=== PATIENT | female | born 1960 | race Caucasian/White ===

== ENCOUNTER 2023-02-22 22:30 | Emergency (ER) | payer OTHER, SELFPAY ==
[2023-02-22] VITALS (8 sets, daily range): BP systolic 70–151; BP diastolic 39–78; PULSE 55–93; RESP 18–26; TEMP 37.3; O2SAT 93–97; BMI 44.6
--- NOTE | 2023-02-22 22:41 | DI.RAD.S_ITS ---
PROCEDURE: XR CHEST 1V INDICATIONS: eval for PNA TECHNIQUE: One view of the chest was acquired. COMPARISON: None. FINDINGS: Surgical changes and devices: None. Lungs and pleura: Low lung volumes. No drainable pleural effusion. No dense consolidation. Possible mild peribronchial cuffing. Mediastinum: Normal heart size Bones and chest wall: No suspicious bony lesions. Overlying soft tissues appear unremarkable. IMPRESSION: Possible mild peribronchial cuffing may be seen with bronchitis. There is no dense airspace disease or pleural effusion on this limited single view radiograph with low lung volumes. Dictated by: Rodriguez Bolton M.D. on 02/22/2023 at 23:31 Approved by: Rodriguez Bolton M.D. on 02/22/2023 at 23:31
--- NOTE | 2023-02-22 23:39 | ED_ITS ---
HPI - General Adult General Chief complaint: Upper Respiratory Symptoms Stated complaint: respiratory issues Time Seen by Provider: 02/22/23 22:35 Source: patient Mode of arrival: Ambulatory History of Present Illness HPI narrative: Patient is a 62-year-old female who is here for evaluation of several days of cough and congestion and then just over 24 hours of worsening cough and congestion and now a loss of taste. She did not test herself for COVID. No underlying lung pathology. No chest pain. She is having diarrhea as well. No recent travel. has similar symptoms. Related Data Previous Rx's Medication Instructions Recorded benzonatate 100 mg capsule 100 mg PO BID-TID PRN cough #20 02/23/23 caps Allergies Allergy/AdvReac Type Severity Reaction Status Date / Time latex Allergy Rash Verified 02/22/23 22:44 Penicillins Allergy Rash Verified 02/22/23 22:44 Review of Systems Constitutional Constitutional: Reports system reviewed and no additional complaints, except as documented Cardiovascular Cardiovascular: Reports system reviewed and no additional complaints, except as documented Respiratory Respiratory: Reports system reviewed and no additional complaints, except as documented Gastrointestinal Gastrointestinal: Reports system reviewed and no additional complaints, except as documented Integumentary/Breasts Skin/Breast: Reports system reviewed and no additional complaints, except as documented Patient History Social History Smoking Status: Never smoker Smoking Status: Never smoker alcohol intake frequency: a few times a week Substance Use Type: marijuana Exam Initial Vital Signs Initial Vital Signs: Vital Signs Pulse Rate 93 H 02/22/23 22:39 Pulse Oximetry 96 02/22/23 22:39 Oxygen Delivery Method Room Air 02/22/23 22:39 HENAR Head: normal to inspection and normocephalic Resp Effort & Inspection: normal respiratory effort Auscultation: clear to auscultation bilaterally Cardio Rate: regular rate Rhythm: regular rhythm GI Inspection: normal to inspection Neuro General: patient alert, patient awake and moves all extremities Course Orders Ordered: ED Orders 02/22/23 22:40 Covid-19 + FLU A/B + RSV - PCR Stat 02/22/23 22:41 XR chest 1V Stat 02/22/23 23:55 Basic Metabolic Panel Stat Complete Blood Count AUTO DIFF Stat Discontinued Medications Benzonatate (Benzonatate 100 Mg Capsule) 100 mg PO NOW ONE Stop: 02/23/23 02:13 Sodium Chloride (Normal Saline 0.9%) 1,000 mls @ 1,000 mls/hr IV BOLUS ONE Stop: 02/23/23 00:47 Last Infusion: 02/23/23 01:07 Dose: Infused Documented By: Admin: 02/23/23 00:01 Dose: 1,000 mls/hr Documented By: SANDEEP Ondansetron HCl (Ondansetron 4 Mg Odt) 4 mg SL NOW ONE Stop: 02/22/23 23:41 Last Admin: 02/22/23 23:44 Dose: 4 mg Documented By: SANDEEP Vital Signs Vital signs: Vital Signs - 8 hr 02/22/23 22:39 02/22/23 22:40 02/22/23 23:00 Temperature 99.2 F Pulse Rate 93 H 87 81 Respiratory Rate 26 H Blood Pressure 151/78 H Pulse Oximetry 96 97 96 Oxygen Delivery Method Room Air Room Air Room Air 02/22/23 23:30 02/22/23 23:42 02/22/23 23:42 Temperature Pulse Rate 73 55 L Respiratory Rate Blood Pressure 74/46 L Pulse Oximetry 95 93 Oxygen Delivery Method 02/22/23 23:45 02/22/23 23:45 02/22/23 23:48 Temperature Pulse Rate 56 L Respiratory Rate 18 Blood Pressure 70/39 L 77/45 L Pulse Oximetry 93 Oxygen Delivery Method 02/22/23 23:48 02/22/23 23:50 02/22/23 23:50 Temperature Pulse Rate 64 62 Respiratory Rate Blood Pressure 76/49 L Pulse Oximetry 93 93 Oxygen Delivery Method Room Air Room Air 02/23/23 00:00 02/23/23 00:00 02/23/23 00:10 Temperature Pulse Rate 65 Respiratory Rate Blood Pressure 81/49 L 89/52 L Pulse Oximetry Oxygen Delivery Method 02/23/23 00:10 02/23/23 00:20 02/23/23 00:20 Temperature Pulse Rate 66 65 Respiratory Rate Blood Pressure 93/50 L Pulse Oximetry 94 Oxygen Delivery Method Nasal Cannula 02/23/23 00:30 02/23/23 00:30 02/23/23 00:40 Temperature Pulse Rate 64 Respiratory Rate Blood Pressure 93/55 L 93/55 L Pulse Oximetry 93 Oxygen Delivery Method Nasal Cannula 02/23/23 00:40 02/23/23 00:50 02/23/23 00:50 Temperature Pulse Rate 64 62 Respiratory Rate Blood Pressure 96/54 L Pulse Oximetry 94 93 Oxygen Delivery Method 02/23/23 01:00 02/23/23 01:00 02/23/23 01:10 Temperature Pulse Rate 63 Respiratory Rate Blood Pressure 95/50 L 99/56 L Pulse Oximetry 91 Oxygen Delivery Method 02/23/23 01:10 02/23/23 01:20 02/23/23 01:20 Temperature Pulse Rate 64 62 Respiratory Rate 18 Blood Pressure 90/51 L Pulse Oximetry 92 96 Oxygen Delivery Method 02/23/23 01:30 02/23/23 01:30 Temperature Pulse Rate 63 Respiratory Rate Blood Pressure 90/53 L Pulse Oximetry 94 Oxygen Delivery Method Room Air Medical Decision Making Lab Data Lab results reviewed: Yes I reviewed the patient's lab results. 02/22/23 23:55 02/22/23 23:55 Labs: Lab Results 02/22/23 02/22/23 Range/Units 22:40 23:55 WBC 8.4 (4.5-11.0) X10^3/uL RBC 4.37 (4.0-5.2) X10^6/uL Hgb 13.3 (12.0-16.0) g/dL Hct 39.7 (36-46) % MCV 91.0 (80-100) fL MCH 30.5 (26-34) PG MCHC 33.5 (30-36) % RDW 13.3 (11.6-14.8) % Plt Count 201 (150-400) X10^3/uL Neut % (Auto) 52.9 (50-75) % Lymph % (Auto) 33.7 (25-40) % [place] % (Auto) 12.6 (3-14) % Eos % (Auto) 0.5 L (2-4) % Baso % (Auto) 0.3 (0-2) % Neut # (Auto) 4400 (8269-6424) /uL Lymph # (Auto) 2800 (8949-2152) /uL [place] # (Auto) 1100 H (0-900) /uL Eos # (Auto) 0 (0-450) /uL Baso # (Auto) 0 (0-100) /uL Sodium 136 L (137-145) mmol/L Potassium 4.0 (3.4-5.1) mmol/L Chloride 106 (98-107) mmol/L Carbon Dioxide 20 L (22-32) mmol/L BUN 7 (7-17) mg/dL Creatinine 0.77 (0.52-1.04) mg/dL Estimated GFR > 60 (>60) mL/min BUN/Creatinine Ratio 9.1 (6-22) Glucose 126 H (80-110) mg/dL Calcium 9.2 (8.4-10.2) mg/dL SARS-CoV-2 (PCR) Positive H (Negative) Influenza A (RT-PCR) Flu a negative (NEGATIVE) Influenza B (RT-PCR) Flu b negative (NEGATIVE) RSV (PCR) Negative (Negative) Imaging Data Chest x-ray: Radiologist's Impression: PROCEDURE: XR CHEST 1V INDICATIONS: eval for PNA TECHNIQUE: One view of the chest was acquired. COMPARISON: None. FINDINGS: Surgical changes and devices: None. Lungs and pleura: Low lung volumes. No drainable pleural effusion. No dense consolidation. Possible mild peribronchial cuffing. Mediastinum: Normal heart size Bones and chest wall: No suspicious bony lesions. Overlying soft tissues appear unremarkable. IMPRESSION: Possible mild peribronchial cuffing may be seen with bronchitis. There is no dense airspace disease or pleural effusion on this limited single view radiograph with low lung volumes MDM Narrative Medical decision making narrative: Patient is COVID positive. She was informed of this resolved. She was not hypoxic. Lungs are clear. Chest x-ray is unremarkable. No indication for admission to hospital. No indication for antibiotics. Will discharge patient home with return precautions. She expressed understanding and agreement with plan. Discharge Plan Departure Patient Disposition: Home Clinical Impression: COVID-19 Instructions: COVID-19 Activity Restrictions/Additional Instructions: You can take Tylenol/ibuprofen for any fevers or body aches. Be sure that you were increasing your fluid intake. Continue the rest of your medications as directed. Return to the emergency department for worsening problems breathing. Prescriptions: New benzonatate 100 mg capsule 100 mg PO BID-TID PRN (Reason: cough) Qty: 20 0RF Stand Alone Forms: Patient Portal/API
[2023-02-22] MEDS: ONDANSETRON 4 MG ODT SL (23:44)
[2023-02-23] VITALS (15 sets, daily range): BP systolic 81–100; BP diastolic 49–59; PULSE 61–67; RESP 18–20; TEMP 36.7; O2SAT 91–98
[2023-02-23] MEDS: SODIUM CHLORIDE 0.9% 1,000 ML 1000 ML IV (00:01)
--- NOTE | 2023-02-23 00:02 | PC.NURSE ---
23:42 patient's significant other came out of the room saying the patient is going to throw up.This nurse came into the room and provided emesis bag. Dr. Cox was notified. MAIKEL mejia was ordered see APR. Patient also became diaphoretic and hypotensive with lowest BP of 70/39. Dr. Cox aware. See orders. IV started, began fluids.
[2023-02-23 00:03] LABS: Add Manual Diff / Slide Review NO; Basophils Absolute Auto 0 /uL (0-100); Basophils Percent Auto 0.3 % (0-2); Eosinophils Absolute Auto 0 /uL (0-450); Eosinophils Percent Auto 0.5 % (2-4); Hematocrit 39.7 % (36-46); Hemoglobin 13.3 g/dL (12.0-16.0); Lymphocytes Absolute Auto 2800 /uL (1100-4500); Lymphocytes Percent Auto 33.7 % (25-40); Mean Corpuscular HGB Conc 33.5 % (30-36); Mean Corpuscular Hemoglobin 30.5 PG (26-34); Monocytes Absolute Auto 1100 /uL (0-900); Monocytes Percent Auto 12.6 % (3-14); Neutrophils Absolute Auto 4400 /uL (1500-7000); Neutrophils Percent Auto 52.9 % (50-75); Platelet Count 201 X10^3/uL (150-400); Red Blood Cell Count 4.37 X10^6/uL (4.0-5.2); Red Cell Distribution Width 13.3 % (11.6-14.8); White Blood Cell Count 8.4 X10^3/uL (4.5-11.0)
[2023-02-23 00:26] LABS: HEMOLYSIS < 15 (0-50)
[2023-02-23 00:27] LABS: BUN Creatinine Ratio 9.1 (6-22); Blood Urea Nitrogen 7 mg/dL (7-17); Calcium 9.2 mg/dL (8.4-10.2); Carbon Dioxide 20 mmol/L (22-32); Chloride 106 mmol/L (98-107); Estimated Glomerular Filt Rate > 60 mL/min (>60); Glucose 126 mg/dL (80-110); Sodium 136 mmol/L (137-145)
[2023-02-23 02:02] LABS: Influenza A - CEPHEID Flu A NEGATIVE (NEGATIVE); Influenza B - CEPHEID Flu B NEGATIVE (NEGATIVE); Respiratory Syncytial Virus Negative (Negative)
[2023-02-23 02:04] LABS: COVID-19 CEPHEID 4-PLEX PCR POSITIVE (Negative)
[2023-02-23] MEDS: BENZONATATE 100 MG CAPSULE PO (02:30)
== END 2023-02-23 02:40 | disposition home or self-care (01) ==
PROVIDERS: Emergency Provider Emergency Medicine
DX: U07.1 COVID-19 (principal); R19.7 Diarrhea, unspecified
CPT/HCPCS: 0241U; 36415; 71045; 80048; 85025; 96360; 99284

== ENCOUNTER 2023-04-28 18:02 | Observation (INO) | payer OTHER, SELFPAY ==
[2023-04-28] VITALS (12 sets, daily range): BP systolic 122–184; BP diastolic 68–106; PULSE 69–97; RESP 18–27; TEMP 36.7; O2SAT 94–98; BMI 40.6
--- NOTE | 2023-04-28 18:25 | DI.RAD.S_ITS ---
PROCEDURE: XR CHEST 1V INDICATIONS: altered mental status TECHNIQUE: One view of the chest was acquired. COMPARISON: [facility], CR, XR CHEST 1V, 02/22/2023, 22:41. FINDINGS: Surgical changes and devices: None. Lungs and pleura: Lungs are clear. No pleural effusions or pneumothorax. Mediastinum: Mediastinal contours appear normal. Heart size is normal. Bones and chest wall: No suspicious bony lesions. Overlying soft tissues appear unremarkable. IMPRESSION: No acute cardiopulmonary abnormality is seen. Dictated by: Cliff Ross M.D. on 04/28/2023 at 18:57 Approved by: Cliff Ross M.D. on 04/28/2023 at 18:57
--- NOTE | 2023-04-28 18:30 | ED_ITS ---
HPI - Altered Mental Status General Chief Complaint: Altered Mental Status Stated Complaint: confusion, trouble communicating, not eating. Time Seen by Provider: 04/28/23 18:29 History of Present Illness HPI narrative: 62-year-old female with history of hypertension, hyperlipidemia, bipolar disorder on lithium and lamotrigine presents by private vehicle from home for 2 episodes of abnormal speaking. Patient states she went to bed in her usual state of health, when she woke up she stated that she began to speak ?nonsense?. She states that she recognized that she was not making any sense whatsoever but was unable to formulate words in an intelligible manner. This resolved after approximately 45 minutes. There was a brief episode again later this afternoon where patient was not speaking intelligibly and so they became concerned and decided to bring the patient in for evaluation. Patient states that this is happened once several years ago. This was attributed to an elevated ammonia level from ?an infection?. She states she improved with antibiotics but the reason for her elevated ammonia level was never found. Patient states she drinks alcohol once or twice weekly and has not had an alcoholic beverage in over 10 days. Related Data Home Medications Medication Instructions Recorded Confirmed diltiazem HCl 300 mg 300 mg PO DAILY 04/28/23 04/28/23 capsule,extended release 24 hr hydroxyzine HCl 50 mg tablet 50 mg PO 3XD PRN Anxiety 04/28/23 04/28/23 isosorbide mononitrate 30 mg 30 mg PO BID 04/28/23 04/28/23 tablet,extended release 24 hr lamotrigine 200 mg tablet 200 mg PO BID 04/28/23 04/28/23 lithium carbonate 300 mg 600 mg PO BID 04/28/23 04/28/23 tablet,extended release valsartan 320 mg tablet 320 mg PO DAILY 04/28/23 04/28/23 Allergies Allergy/AdvReac Type Severity Reaction Status Date / Time latex Allergy Rash Verified 04/28/23 18:25 Penicillins Allergy Rash Verified 04/28/23 18:25 Review of Systems Review of Systems Narrative: Negative except as noted above Patient History Social History Smoking Status: Never smoker Smoking Status: Never smoker alcohol intake frequency: a few times a week Substance Use Type: marijuana Exam Initial Vital Signs Initial Vital Signs: Vital Signs Temperature 98.1 F 04/28/23 18:38 Pulse Rate 97 H 04/28/23 18:38 Respiratory Rate 18 04/28/23 18:38 Blood Pressure 184/101 H 04/28/23 18:38 Pulse Oximetry 97 04/28/23 18:38 Oxygen Delivery Method Room Air 04/28/23 18:38 Const: Awake, alert, no acute distress, nontoxic appearing Cardiac: regular rate, regular rhythm RESP: unlabored, clear bilaterally, no wheezing GI: Soft, nontender, nondistended, no rebound, no guarding MSK: Atraumatic, full range of motion, pulses equal Skin: Warm, Dry, intact, no rashes Neuro: AO x3, CN II-XII grossly intact, moves all extremities, speech normal, sensation normal Course Orders Ordered: ED Orders 04/28/23 18:25 XR chest 1V Stat 04/28/23 18:34 CT head/brain wo con Stat 04/28/23 19:06 EKG-12 Lead Stat 04/28/23 19:29 Ammonia (NH3) Stat Complete Blood Count AUTO DIFF Stat Comprehensive Metabolic Panel Stat [place] Stat Troponin & CK Cardiac Panel Stat 04/28/23 22:22 Urine Drug Screen, Rapid Stat 04/28/23 22:31 CT angio head and neck Stat 04/28/23 23:15 [place] Stat Discontinued Medications Aspirin (Aspirin Ec 325 Mg Tablet) 325 mg PO NOW ONE Stop: 04/29/23 00:30 Last Admin: 04/29/23 00:41 Dose: 325 mg Documented By: NICKOLAS Sodium Chloride (Normal Saline 0.9%) 1,000 mls @ 1,000 mls/hr IV BOLUS ONE Stop: 04/28/23 21:49 Last Infusion: 04/28/23 22:00 Dose: Infused Documented By: Admin: 04/28/23 20:59 Dose: 1,000 mls/hr Documented By: NICKOLAS Vital Signs Vital signs: Vital Signs - 8 hr 04/28/23 18:38 04/28/23 19:29 04/28/23 19:29 Temperature 98.1 F Pulse Rate 97 H 78 Respiratory Rate 18 Blood Pressure 184/101 H 132/79 Pulse Oximetry 97 96 Oxygen Delivery Method Room Air Room Air 04/28/23 19:30 04/28/23 19:30 04/28/23 20:00 Temperature Pulse Rate 79 Respiratory Rate Blood Pressure 143/82 H 138/93 H Pulse Oximetry 95 Oxygen Delivery Method Room Air 04/28/23 20:00 04/28/23 20:30 04/28/23 20:30 Temperature Pulse Rate 82 75 Respiratory Rate Blood Pressure 139/77 Pulse Oximetry 95 94 Oxygen Delivery Method 04/28/23 21:00 04/28/23 21:00 04/28/23 21:30 Temperature Pulse Rate 78 Respiratory Rate 20 Blood Pressure 151/106 H 143/72 H Pulse Oximetry 95 Oxygen Delivery Method 04/28/23 21:30 04/28/23 22:00 04/28/23 22:00 Temperature Pulse Rate 78 71 Respiratory Rate 20 20 Blood Pressure 150/87 H Pulse Oximetry 98 98 Oxygen Delivery Method Room Air Room Air 04/28/23 22:36 04/28/23 22:52 04/28/23 22:52 Temperature Pulse Rate 78 71 Respiratory Rate 24 26 H Blood Pressure 147/71 H Pulse Oximetry 98 98 Oxygen Delivery Method Room Air Room Air 04/28/23 23:00 04/28/23 23:00 04/28/23 23:30 Temperature Pulse Rate 72 69 Respiratory Rate 27 H 25 H Blood Pressure 122/68 Pulse Oximetry 97 97 Oxygen Delivery Method Room Air Room Air 04/28/23 23:30 04/29/23 00:00 04/29/23 00:30 Temperature Pulse Rate 65 61 Respiratory Rate 25 H 29 H Blood Pressure 129/78 Pulse Oximetry 97 95 Oxygen Delivery Method Room Air Room Air 04/29/23 00:39 04/29/23 00:39 Temperature Pulse Rate 88 Respiratory Rate 26 H Blood Pressure 172/67 H Pulse Oximetry 98 Oxygen Delivery Method Room Air MDM - Altered Mental Status Differential Diagnosis Differential diagnosis: Likely altered mental status, delirium and hyponatremia Lab Data 04/28/23 19:29 04/28/23 19:29 Labs: Lab Results 04/28/23 04/28/23 04/28/23 Range/Units 19:29 22:22 23:15 WBC 6.8 (4.5-11.0) X10^3/uL RBC 4.67 (4.0-5.2) X10^6/uL Hgb 14.6 (12.0-16.0) g/dL Hct 43.2 (36-46) % MCV 92.5 (80-100) fL MCH 31.3 (26-34) PG MCHC 33.8 (30-36) % RDW 13.7 (11.6-14.8) % Plt Count 205 (150-400) X10^3/uL Neut % (Auto) 52.4 (50-75) % Lymph % (Auto) 35.4 (25-40) % [place] % (Auto) 9.5 (3-14) % Eos % (Auto) 1.9 L (2-4) % Baso % (Auto) 0.8 (0-2) % Neut # (Auto) 3600 (1053-1530) /uL Lymph # (Auto) 2400 (6160-6540) /uL [place] # (Auto) 700 (0-900) /uL Eos # (Auto) 100 (0-450) /uL Baso # (Auto) 100 (0-100) /uL Sodium 140 (137-145) mmol/L Potassium 3.7 (3.4-5.1) mmol/L Chloride 111 H (98-107) mmol/L Carbon Dioxide 21 L (22-32) mmol/L BUN 6 L (7-17) mg/dL Creatinine 0.89 (0.52-1.04) mg/dL Estimated GFR > 60 (>60) mL/min BUN/Creatinine Ratio 6.7 (6-22) Glucose 105 (80-110) mg/dL Calcium 10.1 (8.4-10.2) mg/dL Total Bilirubin 1.0 (0.2-1.3) mg/dL AST 137 H (14-36) IU/L ALT 173 H (<35) IU/L Alkaline Phosphatase 110 (38-126) U/L Ammonia 25 (9-30) umol/L Total Creatine Kinase 43 (30-135) U/L Troponin I < 0.012 (0.01-0.034) ng/mL Total Protein 7.7 (6.3-8.2) g/dL Albumin 4.4 (3.5-5.0) g/dL Globulin 3.3 (1.7-4.1) g/dL Albumin/Globulin Ratio 1.3 (1.0-2.8) U Opiates 300ng/mL cut Negative (Negative) Ur Oxycodone Screen Negative (Negative) Urine Methadone Screen Negative (Negative) Ur Barbiturates Screen Negative (Negative) U Tricyclic Antidepress Negative (Negative) Ur Phencyclidine Scrn Negative (Negative) Ur Amphetamines Screen Negative (Negative) U Methamphetamines Scrn Negative (Negative) Ur MDMA Scrn (Ecstasy) Negative (Negative) U Benzodiazepines Scrn Negative (Negative) [place] 1.4 H 1.2 (0.6-1.2) mmol/L Urine Cocaine Screen Negative (Negative) U Marijuana (THC) Screen Positive H (Negative) Urine pH Normal (Normal) Urine Specific [place] Normal (Normal) Ur Creatinine Normal (Normal) Urine Dip Bedside Urine Glucose Negative Bedside Urine Bilirubin - Negative Bedside Urine Ketone - Negative Urine Specific [place] 1.005 Bedside Urine Occult Blood - Negative Bedside Urine pH 7.0 Bedside Urine Protein - Negative Bedside Urine Urobilinogen - Negative Bedside Urine Nitrite - Negative Imaging Data CT scan - head: Radiologist's Impression: PROCEDURE: CT HEAD/BRAIN WO CON INDICATIONS: CONFUSION/SPEAKING DIFFICULTIES X 24HRS TECHNIQUE: Noncontrast 4.5 mm thick angled axial sections acquired from the foramen magnum to the vertex, with coronal and sagittal reformats. For radiation dose reduction, the following was used: automated exposure control, adjustment of mA and/or kV according to patient size. COMPARISON: None. FINDINGS: Image quality: Diagnostic. CSF spaces: Basal cisterns are patent. No extra-axial fluid collections. The ventricles are symmetric in size and shape. Brain: No intracranial bleeds or masses. There is cerebral volume loss for age, with resultant ventricular and sulcal prominence. There are periventricular and deep white matter chronic small vessel ischemic changes. There is intracranial internal carotid artery atherosclerosis. Skull and face: Calvarium and visualized facial bones appear intact, without suspicious lesions. Sinuses: Visualized sinuses and mastoids are clear. IMPRESSION: 1. CT head without acute intracranial abnormalities or acute calvarial fractures. 2. Age-related senescent changes and sequela of chronic small vessel ischemic disease. Dictated by: He Elizondo M.D. on 04/28/2023 at 17:53 Approved by: He Elizondo M.D. on 04/28/2023 at 17:53 PROCEDURE: CT ANGIO HEAD AND NECK INDICATIONS: DIFFICULTY SPEAKING THIS MORNING, NOW RESOLVED TECHNIQUE: After the administration of intravenous contrast, 1 mm thick sections acquired from the aortic arch through the [place] of [place]. 3-dimensional mrkwqhc-csdikympi-jatgbrevnh (MIP) and/or volume rendering reformats were acquired of the central intracranial vasculature and neck separately. For radiation dose reduction, the following was used: automated exposure control, adjustment of mA and/or kV according to patient size. COMPARISON: [facility], CT, CT HEAD/BRAIN WO CON, 04/28/2023, 18:41. FINDINGS: Image quality: There is suboptimal opacification of the arteries within the lower neck. Arteries of the head are adequately opacified. Diagnostic information is obtained. BRAIN: CSF spaces: Ventricles are normal in size and shape. Basal cisterns are patent. No extra-axial fluid collections. Brain: No significant abnormality of the brain can be seen. Skull and face: Calvarium and facial bones appear intact, without suspicious lesions. Orbits appear normal. Sinuses: Sinuses and mastoids are clear. HEAD CT ANGIOGRAPHY: Anterior circulation: Intracranial internal carotid arteries demonstrate mild atherosclerotic calcifications without hemodynamically significant stenosis. The flow within the paired anterior cerebral arteries is normal and symmetric. The flow within the middle cerebral arteries is normal and symmetric. The anterior communicating artery is seen. No aneurysms are seen. Posterior circulation: Visualized portions of the vertebral arteries demonstrate normal caliber, and join to form a normal appearing basilar artery. type origin of the right [employer], a normal anatomical variant. Flow within the posterior cerebral arteries is normal and symmetric. No aneurysms are seen. NECK CT ANGIOGRAPHY: Carotid system: The great vessels demonstrate a conventional anatomy as they arise from the aortic arch. The origins of the common carotid arteries appear patent. The common carotid arteries demonstrate normal caliber and retropharyngeal courses. The bifurcation regions are both widely patent. The internal carotid arteries demonstrate normal calibers and tortuous courses. Posterior circulation: The origins of the vertebral arteries both appear widely patent. The more superior extracranial portions of both vertebral arteries also demonstrate normal courses and calibers. They join to form a normal appearing basilar artery. Soft tissues: Visualized neck soft tissues demonstrate no suspicious abnormalities. Thyroid appears mildly enlarged without a significant discrete nodule identified. Bones: No suspicious bony lesions. Visualized cervical spine appears normally aligned. IMPRESSION: Suboptimal timing of the contrast bolus. Within these limits, no significant intracranial arterial abnormality is seen. No significant abnormality is seen within the arteries of the neck. No acute intracranial abnormality is seen. Any quantitative measurements of stenosis were performed using NASCET criteria. Approved by: Kamran Noble M.D. on 04/28/2023 at 23:10 Chest x-ray: Radiologist's Impression: PROCEDURE: XR CHEST 1V INDICATIONS: altered mental status TECHNIQUE: One view of the chest was acquired. COMPARISON: [facility], CR, XR CHEST 1V, 02/22/2023, 22:41. FINDINGS: Surgical changes and devices: None. Lungs and pleura: Lungs are clear. No pleural effusions or pneumothorax. Mediastinum: Mediastinal contours appear normal. Heart size is normal. Bones and chest wall: No suspicious bony lesions. Overlying soft tissues appear unremarkable. IMPRESSION: No acute cardiopulmonary abnormality is seen. Dictated by: Cliff Ross M.D. on 04/28/2023 at 18:57 Approved by: Cliff Ross M.D. on 04/28/2023 at 18:57 [facility] Narrative Medical decision making narrative: Otherwise well-appearing patient with 2 episodes of expressive aphasia. Patient currently has NIH of 0, her speech is fluent and coherent. Patient states that last time this was attributed to an elevated ammonia level but no cause was found for her ammonia elevation. Denies regular alcohol use or history of liver disease. Laboratory work is reviewed, there was no leukocytosis, normal electrolytes. Chest x-ray negative for acute findings. Noncontrast head CT as well as CT angio of the head and neck are negative for acute findings that would explain patient's symptoms. Ammonia level is not elevated, and in addition there are no clinical or laboratory signs of acute infection. Patient's initial lithium level 1.4, she states that 2 weeks ago her lithium level was increased from 900 mg to 1200 mg by her psychiatrist, and she has overall felt poorly since the dose increase, but denies any other symptoms. After 1 L of IV fluids the lithium level was rechecked and it was now within normal limits. I do not suspect lithium toxicity as etiology of patient's speech difficulties. Due to patient's age, risk factors, stuttering nature of symptoms we will admit to hospital for MRI and TIA evaluation. Patient and her are in agreement with plan. Discharge Plan Departure Patient Disposition: Admitted as Observation Clinical Impression: Expressive aphasia Admit Date/Time: 04/29/23 01:01 Admit Provider: Haylie Martins
--- NOTE | 2023-04-28 18:34 | DI.CT.S_ITS ---
PROCEDURE: CT HEAD/BRAIN WO CON INDICATIONS: CONFUSION/SPEAKING DIFFICULTIES X 24HRS TECHNIQUE: Noncontrast 4.5 mm thick angled axial sections acquired from the foramen magnum to the vertex, with coronal and sagittal reformats. For radiation dose reduction, the following was used: automated exposure control, adjustment of mA and/or kV according to patient size. COMPARISON: None. FINDINGS: Image quality: Diagnostic. CSF spaces: Basal cisterns are patent. No extra-axial fluid collections. The ventricles are symmetric in size and shape. Brain: No intracranial bleeds or masses. There is cerebral volume loss for age, with resultant ventricular and sulcal prominence. There are periventricular and deep white matter chronic small vessel ischemic changes. There is intracranial internal carotid artery atherosclerosis. Skull and face: Calvarium and visualized facial bones appear intact, without suspicious lesions. Sinuses: Visualized sinuses and mastoids are clear. IMPRESSION: 1. CT head without acute intracranial abnormalities or acute calvarial fractures. 2. Age-related senescent changes and sequela of chronic small vessel ischemic disease. Dictated by: He Elizondo M.D. on 04/28/2023 at 17:53 Approved by: He Elizondo M.D. on 04/28/2023 at 17:53
--- NOTE | 2023-04-28 18:58 | PC.NURSE ---
[address] Quiroz, no code stroke called at this time per Dr. Quiroz's order.
[2023-04-28 19:46] LABS: Add Manual Diff / Slide Review NO; Basophils Absolute Auto 100 /uL (0-100); Basophils Percent Auto 0.8 % (0-2); Eosinophils Absolute Auto 100 /uL (0-450); Eosinophils Percent Auto 1.9 % (2-4); Hematocrit 43.2 % (36-46); Hemoglobin 14.6 g/dL (12.0-16.0); Lymphocytes Absolute Auto 2400 /uL (1100-4500); Lymphocytes Percent Auto 35.4 % (25-40); Mean Corpuscular HGB Conc 33.8 % (30-36); Mean Corpuscular Hemoglobin 31.3 PG (26-34); Mean Corpuscular Volume 92.5 fL (80-100); Monocytes Absolute Auto 700 /uL (0-900); Monocytes Percent Auto 9.5 % (3-14); Neutrophils Absolute Auto 3600 /uL (1500-7000); Neutrophils Percent Auto 52.4 % (50-75); Platelet Count 205 X10^3/uL (150-400); Red Blood Cell Count 4.67 X10^6/uL (4.0-5.2); Red Cell Distribution Width 13.7 % (11.6-14.8); White Blood Cell Count 6.8 X10^3/uL (4.5-11.0)
[2023-04-28 20:04] LABS: Ammonia (NH3) 25 umol/L (9-30)
[2023-04-28 20:05] LABS: Alanine Aminotransferase 173 IU/L (<35); Albumin 4.4 g/dL (3.5-5.0); Albumin Globulin Ratio 1.3 (1.0-2.8); Alkaline Phosphatase 110 U/L (38-126); Aspartate Aminotransferase 137 IU/L (14-36); BUN Creatinine Ratio 6.7 (6-22); Blood Urea Nitrogen 6 mg/dL (7-17); Calcium 10.1 mg/dL (8.4-10.2); Carbon Dioxide 21 mmol/L (22-32); Chloride 111 mmol/L (98-107); Creatine Kinase 43 U/L (30-135); Estimated Glomerular Filt Rate > 60 mL/min (>60); Globulin 3.3 g/dL (1.7-4.1); Glucose 105 mg/dL (80-110); HEMOLYSIS < 15 (0-50); Potassium 3.7 mmol/L (3.4-5.1); Sodium 140 mmol/L (137-145); Total Protein 7.7 g/dL (6.3-8.2)
[2023-04-28 20:08] LABS: Lithium 1.4 mmol/L (0.6-1.2)
[2023-04-28 20:16] LABS: Troponin I < 0.012 ng/mL (0.01-0.034)
[2023-04-28] MEDS: SODIUM CHLORIDE 0.9% 1,000 ML 1000 ML IV (20:59)
--- NOTE | 2023-04-28 22:31 | DI.CT.S_ITS ---
PROCEDURE: CT ANGIO HEAD AND NECK INDICATIONS: DIFFICULTY SPEAKING THIS MORNING, NOW RESOLVED TECHNIQUE: After the administration of intravenous contrast, 1 mm thick sections acquired from the aortic arch through the [place]. 3-dimensional yojsadb-rmdpkjkqt-hbmzuewltz (MIP) and/or volume rendering reformats were acquired of the central intracranial vasculature and neck separately. For radiation dose reduction, the following was used: automated exposure control, adjustment of mA and/or kV according to patient size. COMPARISON: [facility], CT, CT HEAD/BRAIN WO CON, 04/28/2023, 18:41. FINDINGS: Image quality: There is suboptimal opacification of the arteries within the lower neck. Arteries of the head are adequately opacified. Diagnostic information is obtained. BRAIN: CSF spaces: Ventricles are normal in size and shape. Basal cisterns are patent. No extra-axial fluid collections. Brain: No significant abnormality of the brain can be seen. Skull and face: Calvarium and facial bones appear intact, without suspicious lesions. Orbits appear normal. Sinuses: Sinuses and mastoids are clear. HEAD CT ANGIOGRAPHY: Anterior circulation: Intracranial internal carotid arteries demonstrate mild atherosclerotic calcifications without hemodynamically significant stenosis. The flow within the paired anterior cerebral arteries is normal and symmetric. The flow within the middle cerebral arteries is normal and symmetric. The anterior communicating artery is seen. No aneurysms are seen. Posterior circulation: Visualized portions of the vertebral arteries demonstrate normal caliber, and join to form a normal appearing basilar artery. type origin of the right HEARING STENOGRAPHER, a normal anatomical variant. Flow within the posterior cerebral arteries is normal and symmetric. No aneurysms are seen. NECK CT ANGIOGRAPHY: Carotid system: The great vessels demonstrate a conventional anatomy as they arise from the aortic arch. The origins of the common carotid arteries appear patent. The common carotid arteries demonstrate normal caliber and retropharyngeal courses. The bifurcation regions are both widely patent. The internal carotid arteries demonstrate normal calibers and tortuous courses. Posterior circulation: The origins of the vertebral arteries both appear widely patent. The more superior extracranial portions of both vertebral arteries also demonstrate normal courses and calibers. They join to form a normal appearing basilar artery. Soft tissues: Visualized neck soft tissues demonstrate no suspicious abnormalities. Thyroid appears mildly enlarged without a significant discrete nodule identified. Bones: No suspicious bony lesions. Visualized cervical spine appears normally aligned. IMPRESSION: Suboptimal timing of the contrast bolus. Within these limits, no significant intracranial arterial abnormality is seen. No significant abnormality is seen within the arteries of the neck. No acute intracranial abnormality is seen. Any quantitative measurements of stenosis were performed using NASCET criteria. Approved by: Kamran Noble M.D. on 04/28/2023 at 23:10
[2023-04-28 22:35] LABS: Ur Creatinine Normal (Normal); Ur Specific Gravity Normal (Normal); Urine pH Normal (Normal)
[2023-04-28 22:36] LABS: UR Morphine/Opiate cutoff 300 Negative (Negative); Urine Amphetamines Negative (Negative); Urine Barbiturates Negative (Negative); Urine Benzodiazepines Negative (Negative); Urine Cocaine Negative (Negative); Urine MDMA Negative (Negative); Urine Methadone Negative (Negative); Urine Methamphetamines Negative (Negative); Urine Oxycodone Negative (Negative); Urine Phencyclidine Negative (Negative); Urine Tetrahydrocannabinol Positive (Negative); Urine Tricyclic Antidepressant Negative (Negative)
--- NOTE | 2023-04-28 23:47 | PC.NURSE ---
Since this nurse arrived at 1900, the pt has been AAOx4, ambulatory, denied any pain, and denies any complaints at this time. Airway intact, no respiratory distress noted, equal rise and fall of chest. Pt is currently resting in bed, has gone home for the night. Earlier when was here, both the pt and denied the pt having any of the previous symptoms of expressive dysphagia while being in ER. Denied any unilateral or general weakness, no loss of sensation, no vision troubles. Pt states she is feeling at her baseline and denies any needs.
[2023-04-29] VITALS (10 sets, daily range): BP systolic 133–178; BP diastolic 67–121; PULSE 60–88; RESP 16–29; TEMP 36.1–36.8; O2SAT 95–98; BMI 40.6
--- NOTE | 2023-04-29 | DI.MRI.S_ITS ---
PROCEDURE: MR HEAD/BRAIN WO CON INDICATIONS: stroke rule out, stuttering expressive aphasia TECHNIQUE: Non-contrast axial T1 spin echo, axial T2 fast spin echo, sagittal and axial FLAIR, coronal T2 fast spin echo, axial gradient echo, axial diffusion and ADC through the brain. COMPARISON: [facility], CT, CT HEAD/BRAIN WO CON, 04/28/2023, 18:41. [facility], CT, CT ANGIO HEAD AND NECK, 04/28/2023, 22:35. FINDINGS: Image quality: Excellent. CSF spaces: Ventricles appear symmetric in size and shape. Basal cisterns are patent. No extra-axial fluid collections. Brain: No intracranial bleeds or mass effects. There is cerebral volume loss for age. There are periventricular and deep white matter chronic small vessel ischemic changes. Brainstem appears normal. Diffusion-weighted images show no acute infarct. No chronic ischemic insults. Normal intravascular flow voids are present. Skull and face: Calvarial bone marrow is normal in signal. Orbits are normal. Sinuses: Sinuses and mastoids are clear. IMPRESSION: 1. No acute infarction. No acute intracranial bleed, midline shift or mass effect. 2. Mild age related volume loss. Dictated by: Jossue Manning M.D. on 04/29/2023 at 9:36 Approved by: Jossue Manning M.D. on 04/29/2023 at 9:37
[2023-04-29 00:15] LABS: Lithium 1.2 mmol/L (0.6-1.2)
[2023-04-29] MEDS: ASPIRIN EC 325 MG TABLET PO (00:41)
--- NOTE | 2023-04-29 01:28 | PC.NURSE ---
Pt given a half turkey sandwich and a half tuna sandwich and a diet tra jerel. Pt denied any further needs at this time.
--- NOTE | 2023-04-29 02:06 | DI.ECHO.S_ITS ---
[place] [facility]---------+ [facility] +---------+ : : [address] : [place] [address] : : : : [id number] : : : : Phone: [phone]+ Echocardiogram Report + + :Name: ROBERT LEW Study Date: 04/29/2023 Height: 67 in : :[facility] ReadingLocation: Weight: 275 lb : : Gender: Female BSA: 2.3 m2 : :: 1960 Age: 62 yrs BP: 144/76 mmHg: :Reason For Study: CVA : :Ordering Physician: BELKYS CAMPOVERDE : :S Performed By: Chauncey Torres : :Referring: BELKYS CAMPOVERDE S : + + Interpretation Summary Normal sinus rhythm. Normal LV size and wall thickness. Normal wall motion and LV systolic function. Ejection fraction 60-65%. Stage I diastolic dysfunction. Mild left atrial and right atrial enlargement. Mildly dilated RV. No significant valvular abnormalities. No source of embolism found. Bubble study showed no interatrial shunt. No prior study available for comparison. Procedure: A two-dimensional transthoracic echocardiogram with color flow and Doppler was performed. The study quality was technically adequate. There is no prior echocardiogram noted for this patient. A saline contrast injection was performed to assess for cardiac shunting. The patient was in normal sinus rhythm during the exam. The heart rate ranged between 61-85 bpm during the study. Left Ventricle: The left ventricle is normal in size and wall thickness. The ejection fraction is estimated to be 60-65%. Right Ventricle: The right ventricle is mildly dilated. The right ventricular systolic function is normal. Atria: The left atrium is mildly dilated. The right atrium is mildly dilated. The interatrial septum grossly appears intact with no obvious evidence for an atrial septal defect. NEG BUBBLE STUDY. Mitral Valve: The mitral valve is normal in structure and function. There is no mitral valve stenosis. There is trace mitral regurgitation. Aortic Valve: The aortic valve is trileaflet. There is no aortic valve stenosis. No aortic regurgitation is present. Tricuspid Valve: The tricuspid valve is normal in structure and function. There is no tricuspid stenosis. No tricuspid regurgitation. Pulmonic Valve: The pulmonic valve is not well visualized. There is no pulmonic valvular stenosis. There is no pulmonic valvular regurgitation. Great Vessels: The aortic root is normal size. The ascending aorta is mildly enlarged. The inferior vena cava was not visualized. Pericardium/ Pleura There is no pericardial effusion. There is no pleural effusion. MMode/2D Measurements & Calculations LVIDd: 5.0 cm LVOT diam: 2.0 cm LVIDs: 2.8 cm Ao root diam: 2.9 cm FS: 43.2 % asc Aorta Diam: 4.0 cm IVSd: 1.1 cm Ao Arch Diam (Prox Trans): 3.0 cm LVPWd: 1.1 cm LV [place]. diameter/BSA (cm/m^2): 2.2 LV sys. diameter/BSA (cm/m^2): 1.2 LA A2 area: 17.9 cm2 RA long axis: 5.3 cm LA A4 area: 24.2 cm2 RA area: 20.9 cm2 LA length (vol): 6.7 cm RA vol: 70.6 ml LA vol: 54.8 ml RA : 30.5 ml/m2 LA vol index: 23.7 ml/m2 RVD1 (basal): 4.2 cm RVD2 (mid): 3.9 cm TAPSE: 3.0 cm Doppler Measurements & Calculations Ao V2 max: 162.1 cm/sec LVOT Max Emiliano: 140.5 cm/sec Ao V2 mean: 111.0 cm/sec LV V1 max P.9 mmHg Ao max P.5 mmHg LV V1 VTI: 37.7 cm Ao mean P.5 mmHg AMY(I,D): 3.0 cm2 Ao V2 VTI: 38.4 cm AMY(V,D): 2.7 cm2 sev ratio: 0.98 AMY indexed to BSA (cm^2/m^2): 1.3 MV E max emiliano: 90.5 cm/sec PA pr(Accel): 15.6 mmHg MV A max emiliano: 101.5 cm/sec MV E/A: 0.89 Med Peak E' Emiliano: 6.2 cm/sec E/E' med: 14.6 Lat Peak E' Emiliano: 11.0 cm/sec E/E' lat: 8.2 E/e' average: 11.4 MV dec time: 0.24 sec SV(LVOT): 116.6 ml Electronically signed by: Sujata Sutton M.D. on Reading Physician:04/30/2023 08:26 AM
--- NOTE | 2023-04-29 02:14 | PM.HP.1 ---
History of Present Illness History of Present Illness Date Patient Seen: 04/29/23 Time Patient Seen: 02:51 Date of Onset of Symptoms: 04/28/23 Chief complaint: confusion, trouble communicating, not eating. Narrative: States that she woke up this morning and upon awakening she was not able to get her words out, she was talking but none of it made sense and were not the words that she wanted. This lasted about an hour and then started to improve. Her and her started to drive into the hospital however this symptoms or to the point that they were only a few words that she was having difficulty with and thus they decided to go home. Upon getting home symptoms did continue to worsen and they turned around and came back to the hospital. States that she's feeling significantly better now but isn't always able to come up with the exact word that she would like to speak and feels that it takes her a few seconds longer to think of what she wants to say. Notes that a few years ago she had similar symptomatology gamma was found to have an elevated ammonia level secondary to infection and required an extensive course of antibiotics, followed with an infectious disease physician. She does note that she had a recent change about 3 to 4 weeks ago of her lithium dose and could feel that the levels were elevated. She is following with her primary care physician Antonia on the [facility] for chronic elevated transaminase which have been present for several years and felt to be secondary to statins. She's currently on a statin holiday to see if her transaminases improved. Has a history of nausea and non bloody emesis, feeling occasionally like food gets stuck in her throat about once every six months. Early satiety with about 10 LB weight loss over the last three weeks. A couple month history of diarrhea sometimes watery and sometimes loose brown. Does not feel that these symptomatology are associated with food. Specifically with the nausea it has been come worse since she had COVID 03/05/23, no she has coughing episodes that result in Jackelin sis. Denies odynophagia. She did see a mathematics academic chair in [place] who wanted to place an aspire, she declined at that time period reports that colonoscopy was normal. Neurologically intact in the emergency department. NIH zero. [facility] Medical History (Updated 04/29/23 @ 04:46 by Haylie Martins DO) HTN (hypertension), benign Social History Smoking Status: Never smoker Meds Home Medications and Allergies Home Medications Medication Instructions Recorded Confirmed Type diltiazem HCl 300 mg 300 mg PO DAILY 04/28/23 04/28/23 History capsule,extended release 24 hr hydroxyzine HCl 50 mg tablet 50 mg PO 3XD PRN Anxiety 04/28/23 04/28/23 History isosorbide mononitrate 30 mg 30 mg PO BID 04/28/23 04/28/23 History tablet,extended release 24 hr lamotrigine 200 mg tablet 200 mg PO BID 04/28/23 04/28/23 History lithium carbonate 300 mg 600 mg PO BID 04/28/23 04/28/23 History tablet,extended release valsartan 320 mg tablet 320 mg PO DAILY 04/28/23 04/28/23 History Allergies Allergy/AdvReac Type Severity Reaction Status Date / Time latex Allergy Rash Verified 04/28/23 18:25 Penicillins Allergy Rash Verified 04/28/23 18:25 Review of Systems Review of Systems Narrative: Notes that a few years ago she had similar symptomatology gamma was found to have an elevated ammonia level secondary to infection and required an extensive course of antibiotics, followed with an infectious disease physician. Cardiovascular Cardiovascular: Denies chest pain, Denies rapid heart rate and Denies dyspnea Respiratory Respiratory: Denies dyspnea Exam Vital Signs (past 8 hours): - 04/28/23 18:38 04/28/23 19:29 04/28/23 19:29 Temperature 98.1 F Pulse Rate 97 H 78 Respiratory Rate 18 Blood Pressure 184/101 H 132/79 Pulse Oximetry 97 96 Oxygen Delivery Method Room Air Room Air Oxygen Flow Rate 04/28/23 19:30 04/28/23 19:30 04/28/23 20:00 Temperature Pulse Rate 79 Respiratory Rate Blood Pressure 143/82 H 138/93 H Pulse Oximetry 95 Oxygen Delivery Method Room Air Oxygen Flow Rate 04/28/23 20:00 04/28/23 20:30 04/28/23 20:30 Temperature Pulse Rate 82 75 Respiratory Rate Blood Pressure 139/77 Pulse Oximetry 95 94 Oxygen Delivery Method Oxygen Flow Rate 04/28/23 21:00 04/28/23 21:00 04/28/23 21:30 Temperature Pulse Rate 78 Respiratory Rate 20 Blood Pressure 151/106 H 143/72 H Pulse Oximetry 95 Oxygen Delivery Method Oxygen Flow Rate 04/28/23 21:30 04/28/23 22:00 04/28/23 22:00 Temperature Pulse Rate 78 71 Respiratory Rate 20 20 Blood Pressure 150/87 H Pulse Oximetry 98 98 Oxygen Delivery Method Room Air Room Air Oxygen Flow Rate 04/28/23 22:36 04/28/23 22:52 04/28/23 22:52 Temperature Pulse Rate 78 71 Respiratory Rate 24 26 H Blood Pressure 147/71 H Pulse Oximetry 98 98 Oxygen Delivery Method Room Air Room Air Oxygen Flow Rate 04/28/23 23:00 04/28/23 23:00 04/28/23 23:30 Temperature Pulse Rate 72 69 Respiratory Rate 27 H 25 H Blood Pressure 122/68 Pulse Oximetry 97 97 Oxygen Delivery Method Room Air Room Air Oxygen Flow Rate 04/28/23 23:30 04/29/23 00:00 04/29/23 00:30 Temperature Pulse Rate 65 61 Respiratory Rate 25 H 29 H Blood Pressure 129/78 Pulse Oximetry 97 95 Oxygen Delivery Method Room Air Room Air Oxygen Flow Rate 04/29/23 00:39 04/29/23 00:39 04/29/23 02:10 Temperature Pulse Rate 88 Respiratory Rate 26 H Blood Pressure 172/67 H 168/100 H Pulse Oximetry 98 Oxygen Delivery Method Room Air Oxygen Flow Rate 04/29/23 02:11 04/29/23 02:12 Temperature 97.2 F L Pulse Rate 70 Respiratory Rate 19 Blood Pressure 175/93 H 147/101 H Pulse Oximetry 98 Oxygen Delivery Method Oxygen Flow Rate 0 Oxygen Delivery Method Room Air Oxygen Flow Rate 0 Const General: healthy appearing and comfortable [facility] Head: normal to inspection Mouth: oral mucosae normal Eyes General: appearance normal, both eyes and all related structures Pupils: PERRL EOM: EOM intact bilaterally Neck Neck: normal visual inspection Resp Effort & Inspection: normal respiratory effort Auscultation: clear to auscultation bilaterally Cardio Rate: regular rate Rhythm: regular rhythm Heart Sounds: no murmurs Skin General: no rashes or lesions noted Neuro General: patient alert, patient oriented x3 and CN's II-XI intact bilaterally Extrem General: normal to inspection and no pedal edema Objective ECG Impression: Pending Imaging CT scan - head: My impression: Head CT/CTA NAP Radiologist's impression: CT IMPRESSION: 1. CT head without acute intracranial abnormalities or acute calvarial fractures. 2. Age-related senescent changes and sequela of chronic small vessel ischemic disease. Dictated by: He Elizondo M.D. on 04/28/2023 at 17:53 Approved by: He Elizondo M.D. on 04/28/2023 at 17:53 CTA IMPRESSION: Suboptimal timing of the contrast bolus. Within these limits, no significant intracranial arterial abnormality is seen. No significant abnormality is seen within the arteries of the neck. No acute intracranial abnormality is seen. Any quantitative measurements of stenosis were performed using NASCET criteria. Approved by: Kamran Noble M.D. on 04/28/2023 at 23:10 Chest x-ray: My impression: NAP Radiologist's impression: IMPRESSION: No acute cardiopulmonary abnormality is seen. Dictated by: Cliff Ross M.D. on 04/28/2023 at 18:57 Labs 04/28/23 19:29 04/28/23 19:29 Labs: Laboratory Results - last 24 hr 04/28/23 04/28/23 04/28/23 19:29 22:22 23:15 WBC 6.8 RBC 4.67 Hgb 14.6 Hct 43.2 MCV 92.5 MCH 31.3 MCHC 33.8 RDW 13.7 Plt Count 205 Neut % (Auto) 52.4 Lymph % (Auto) 35.4 [place] % (Auto) 9.5 Eos % (Auto) 1.9 L Baso % (Auto) 0.8 Neut # (Auto) 3600 Lymph # (Auto) 2400 [place] # (Auto) 700 Eos # (Auto) 100 Baso # (Auto) 100 Sodium 140 Potassium 3.7 Chloride 111 H Carbon Dioxide 21 L BUN 6 L Creatinine 0.89 Estimated GFR > 60 BUN/Creatinine Ratio 6.7 Glucose 105 Calcium 10.1 Total Bilirubin 1.0 AST 137 H ALT 173 H Alkaline Phosphatase 110 Ammonia 25 Total Creatine Kinase 43 Troponin I < 0.012 Total Protein 7.7 Albumin 4.4 Globulin 3.3 Albumin/Globulin Ratio 1.3 U Opiates 300ng/mL cut Negative Ur Oxycodone Screen Negative Urine Methadone Screen Negative Ur Barbiturates Screen Negative U Tricyclic Antidepress Negative Ur Phencyclidine Scrn Negative Ur Amphetamines Screen Negative U Methamphetamines Scrn Negative Ur MDMA Scrn (Ecstasy) Negative U Benzodiazepines Scrn Negative [place] 1.4 H 1.2 Urine Cocaine Screen Negative U Marijuana (THC) Screen Positive H Urine pH Normal Urine Specific [place] Normal Ur Creatinine Normal Assessment & Plan Assessment and plan (1) Expressive aphasia: Status: Acute (2) HTN (hypertension), benign: Status: Acute Assessment & Plan narrative: TIA rule out CVA HTN HLD symptoms concerning for stuttering CVA CT/CTA without acute process Observe for CVA protocol, cardiac monitoring come on serial neurochecks, ancillary support A1C, lipid panel pending permissive hypertension, hold home Diltiazem, Valsartan, Imdur, goal SBP < 220 Start aspirin, statin MRI, echo ordered chronic conditions bipolar disorder, lithium level elevated with repeat 1.2, continue lithium monitoring closely, continue home lamotrigine REBECCA, cpap QHS morbid obesity, complicates all aspects of medical care anxiety, continue home hydroxyzine prn chronic nausea vomiting, diarrhea, elevated transaminases; Follow up with PCP, GI Time Spent With Patient Time with patient: 50 to 69 minutes with 50% spent counseling/coordinating care
[2023-04-29] MEDS: ACETAMINOPHEN 325 MG TABLET 650 MG PO ×2 (02:48→08:43)
[2023-04-29 07:02] LABS: Cholesterol 222 mg/dL (140-199); HDL Cholesterol 39 mg/dL (40-60); LDL Cholesterol Calculated 147 mg/dL (<100); Triglycerides 178 mg/dL (35-150)
[2023-04-29 07:03] LABS: Alanine Aminotransferase 138 IU/L (<35); Albumin 3.9 g/dL (3.5-5.0); Albumin Globulin Ratio 1.3 (1.0-2.8); Alkaline Phosphatase 98 U/L (38-126); Aspartate Aminotransferase 100 IU/L (14-36); BUN Creatinine Ratio 7.7 (6-22); Bilirubin Total 0.7 mg/dL (0.2-1.3); Blood Urea Nitrogen 7 mg/dL (7-17); Calcium 9.6 mg/dL (8.4-10.2); Carbon Dioxide 24 mmol/L (22-32); Chloride 113 mmol/L (98-107); Estimated Glomerular Filt Rate > 60 mL/min (>60); Globulin 2.9 g/dL (1.7-4.1); Glucose 105 mg/dL (80-110); HEMOLYSIS < 15 (0-50); Potassium 3.7 mmol/L (3.4-5.1); Sodium 141 mmol/L (137-145); Total Protein 6.8 g/dL (6.3-8.2)
[2023-04-29 07:07] LABS: Hemoglobin A1C% w Est Avg Glu 4.8 % (4.0-6.0)
[2023-04-29] MEDS: lamoTRIgine 100 MG TABLET 200 MG PO (08:43)
[2023-04-29] MEDS: LITHIUM 300 MG ER TABLET 600 MG PO (08:43)
[2023-04-29] MEDS: ASPIRIN EC 81 MG TABLET PO (08:43)
--- NOTE | 2023-04-29 10:13 | OT.IPNOTE ---
Attempted OT eval and pt states has no OT needs and has been independent in the room per nursing. Able to talk to the hospitalist and discharge OT eval.
--- NOTE | 2023-04-29 10:59 | PT.IIE ---
Current Diagnoses Essential (primary) hypertension (04/29/23) Aphasia (04/29/23) Medical History (Last Updated 04/29/23 @ 04:46 by Haylie Martins DO) HTN (hypertension), benign Physical Therapy Inpatient Evaluation/Re-Eval M1 PT/OT-IP Prior Functional Status Start: 04/29/23 12:57 Freq: NEEDED Status: Active Protocol: Document 04/29/23 10:59 DLM (Rec: 04/29/23 13:20 DLM [id number]) Medical Review Prior Functional Status Medical History Reviewed Yes Diet/Fluid Consistency Regular Communication WNL Mobility and Gait Independent without device, she report she distances are limited by right knee/hip/back pain. She reports she limps on right LE due to pain. She is able to go up steps only if she has a rail and uses step- to pattern. Activities of Daily Living and IADL's Independent with basic ADL's, Spouse helps with advanced ADL 's. She stand for her shower. Prior Functional Level (Other details) history of right total knee arthroplasty about 12 years ago, now has pain but does not want another TKA (she was told she has bone spurs under patella), she reports a knee brace was recommended for her but she has not gotten one yet Social History Household Members spouse Living Arrangements House Number of Floors (Floors) One Floor Number of Stairs To Enter/Railing? few with rail Home Environment Standard Height Toilet,Walk in Shower,Tub/Shower Home Equipment Raised Toilet Seat w/Armrests M2 PT-IP Current Condition Start: 04/29/23 12:57 Freq: NEEDED Status: Active Protocol: Document 04/29/23 10:59 DLM (Rec: 04/29/23 13:20 DLM [id number]) Physical Therapy Current Condition Current Condition Evaluation Date 04/29/23 Treatment Diagnosis AMS, right knee/hip/back pain Onset Date 04/29/23 M3 PT-IP Subjective Start: 04/29/23 12:57 Freq: NEEDED Status: Active Protocol: Document 04/29/23 10:59 DLM (Rec: 04/29/23 13:20 DLM [id number]) Subjective Physical Therapy Visit Type Type Initial Evaluation Visit Start Time 10:25 Visit Stop Time 10:59 Number of PAINT BRUSH MAKER Visits 0 Physical Therapy Visit Comments Patient Comments She complains of right knee/ hip/back pain that limits her activity at home. She did pool exercises in the past with Physical Therapy. Patient Goals Discharge home Therapy Pain Assessment Pain When Pain Assessed During Mobility Pain Present Pain Present Pain Reported Location Right Hip Intensity 3 Scale Used Numeric (0 - 10) Description Acute,With Movement Pain Behaviors Guarding Right Knee Intensity 4 Scale Used Numeric (0 - 10) Description Aching,With Movement Pain Behaviors Guarding M4 PT-IP Mobility and Gait Start: 04/29/23 12:57 Freq: NEEDED Status: Active Protocol: Document 04/29/23 10:59 DLM (Rec: 04/29/23 13:20 DLM [id number]) PT-Bed Mobility Assessment Rolling Level of Assist Independent Supine to Sit Supine to Sit Independent Sit to Supine Sit to Supine Independent Scooting Scooting to Edge of Bed Independent Scooting Up and Down in Bed Independent PT-Transfer Assessment Sit to and From Stand Sit to and from Stand Independent,Use of Upper Extremities Equipment Transfer Assistive Device None Transfers Transfer Destination Bed Transfer Technique Stand Step Pivot Transfer Ability Level of Assist Independent,Use of Upper Extremities Comments Mobility Comments Pt has been up ambulating in the room with nursing during this hospitalization. Gait Assessment Gait Gait Assistance Required: Independent Distance (Feet) 20 Assistive Devices Assistive Device None Gait Deviations General Gait Pattern Antalgic Factors Limiting Gait Function Factors Limiting Gait Function Decreased Activity Tolerance, Decreased Strength,Pain Comments Gait Comments she demonstrates good balance, she has increased right LE pain with weight bearing causing a mildly antalgic gait pattern, discussed use of cane with pt to manage her pain Stair Climbing Assessment Comments Stair Climbing Comments pt reports using step-to pattern at baseline to manage her pain, not concerned about doing them at home PT-Balance Assessment Sitting Balance and Reactions Static Sitting Balance Ability Normal Dynamic Sitting Balance Ability Normal Standing Balance and Reactions Static Standing Balance Ability Good Dynamic Standing Balance Ability Good M5 PT-IP Objective Assessments Start: 04/29/23 12:57 Freq: NEEDED Status: Active Protocol: Document 04/29/23 10:59 DLM (Rec: 04/29/23 13:20 DLM [id number]) Orientation Orientation/Cognition Level of Alertness Alert Orientation Name,Age,Birthday,Month,Date, Year,Day of Week,Place, Situation Language Function Ability No Deficits Noted Safety Awareness Understands Safety Issues Memory Description No Deficits Noted Gross Range of Motion Upper Extremity ROM Assessment Within Functional Limits Lower Extremity ROM Assessment Right Impaired Impairments pain right knee limits flexion to about 90 degrees Strength Upper Extremity Strength Assessment Within Functional Limits Lower Extremity Strength Assessment Right Impaired Hip flex 4/5 with pain Knee ext 4-/5 with pain Coordination Assessment Gross Coordination Gross Coordination WNL Sensation Assessment Sensation Gross Sensation WNL Comments Sensation Comments no changes reported by pt Muscle Tone Muscle Tone WNL Yes M6 PT-IP Treatment Start: 04/29/23 12:57 Freq: NEEDED Status: Active Protocol: Document 04/29/23 10:59 DLM (Rec: 04/29/23 13:20 DL [id number]) Physical Therapy Treatment Education Education Provided Safety Other Treatments Other Treatment Performed Discussed using an assistive device with pt including cane and walker to manage her right LE pain. She is reluctant to using a walker since it makes her feel old. Also discussed exercises for LE's including doing pool exercises. Pt is unsure if she can afford to go to the pool. Exercises she can start at home: standing hip flex, hip extension, hip abduction and bilateral heel raises (all with UE support). M7 PT-IP Assessment and Plan Start: 04/29/23 12:57 Freq: NEEDED Status: Active Protocol: Document 04/29/23 10:59 DLM (Rec: 04/29/23 13:20 DL [id number]) PT Summary Assessment and Plan Potential Rehabilitation Potential Good Status of Condition at Evaluation Evolving Summary Impairments Pain,ROM,Strength,Activity Tolerance Assessment Summary Georgiana is alert and resting in bed this visit with her visiting. She reports no changes in her functionally mobility or gait at this time from baseline. She has ongoing pain in right knee/hip/back that limit her distances of gait which has been an ongoing problem at home. Pt reports a physician recommended she try a knee brace but she has not gotten one yet. I recommended she try a cane to help manage her antalgic gait pattern. Concerned that her antalgic gait pattern is contributing to ongoing hip and back pain. She may benefit from out-pt Physical therapy for her right LE pain when it is medically appropriate. Pt reports no concerns about being able to discharge home from the hospital. Will defer further Physical therapy to out-pt follow-up. Frequency of Treatment Frequency Of Treatment Discharge Weight Bearing Status Weight Bearing Status Weight Bear as Tolerated Recommendations To Nursing Amount of Assist Needed Independent Discharge Recommendations PT Discharge Recommendations Home with Assistance Other Discharge Recommendations has support of Spouse Transportation Needs at Discharge Private Vehicle
--- NOTE | 2023-04-29 12:06 | DIET.CONS ---
Dietary Consultation Note Admission Date: 04/29/2023 01:01 Assessment: 62 y F admitted for confusion, trouble communicating, not eating. Nutrition screened for low MNA of 5. Pt reports unintentional weight loss of 10# within 3 weeks. Reported weight 1 month ago was 131.364 kg (5% weight loss in 1 month, moderate). Weight in EMR from 02/22/23 is 129.274 (3.5% weight loss within 3 months, non-severe) Pt experiencing nausea daily, sometimes throughout the day, which can cause early satiety when eating. Experiences diarrhea daily, often with 3 large liquid bowel movements per day. Reports N/V/D have lasted longer than 3 weeks. Does not associate these symptoms with any foods/PO intakes. Dietary recall varies daily, with intakes beginning in the afternoon and pt tolerating softer foods, i.e. mashed potatoes, better. Nutrition focused physical exam performed due to MNA score. No signs of muscle wasting or subcutaneous fat loss present through exam. Areas assessed: temporalis muscle, clavicle/shoulder region, interosseous muscle and buccal and orbital fat pads. Ht: 175.26 cm Wt: 124.738 kg BMI: 40.6 UBW: 131.364 kg per pt as of 1 month ago Last BM: 04/29/23 (04/29/23 06:00) MNA: 5 Julien Score: 22 Diet: 04/29/23 Lunch General (Regular) Diet Diet Modifications: Food Texture: Level 7 - Regular Liquid Consistency: Level 0 - Thin Nutrition Percent Meal Consumed 50% 04/29/23 09:00 Per RN note- pt also consumed 1/2 turkey sandwich and 1/2 tuna fish sandwich early AM on 04/28 Labs: RBC 4.67 X10^6/uL (4.0-5.2) 04/28/23 19:29 Hgb 14.6 g/dL (12.0-16.0) 04/28/23 19:29 Hct 43.2 % (36-46) 04/28/23 19:29 Creatinine 0.91 mg/dL (0.52-1.04) 04/29/23 06:30 Hemoglobin A1c 4.8 % (4.0-6.0) 04/29/23 06:30 Nutrition Diagnosis: Inadequate oral intake r/t decreased ability to consume sufficient energy as evidenced by symptoms of nausea and vomiting for over 1 month and unintentional weight loss of 5% in 1 month (moderate). Interventions: 1. Provided nausea nutrition therapy to assist with adequate intake. 2. Encouraged adequate protein intake to prevent muscle mass loss. Discussed eating protein based foods first at meal time to ensure adequate intake before early satiety and the use of Ensure Max Protein/high protein drinks during times food intake is not sufficient/not possible due to symptoms. EER: [id number] kcals per day (15 kcals/kg) 70-80 grams PRO per day (.8-1.0 grams/kg of IBW of 83 kg) Monitoring/Evaluations: PO intakes, symptoms of N/V/D Electronically Signed by: Serene Shah 04/29/23 12:06 Clinical Dietitian [address] [address]
--- NOTE | 2023-04-29 12:29 | CM.DANOTE ---
Initial DCP Assessment Note Reviewed EMR and team rounds for pt's medical status and updates. Went to meet with pt f/f, however she was working with ASPHALT MACHINE OPERATOR at the time. Pt lives independently with her spouse in their own home in [place]. No anticipated home d/c needs identified at this time, once medically cleared her spouse will transport her home. Payor: Antonia Barnett PCP: Edward Varela Pt is a 62 year-old F with a PMH of hypertension, hyperlipidemia, and bipolar currently on both [place] and lamotrigine. She presented to the ED last evening via private vehicle with her spouse after experiencing 2-episodes of aphasia that was not resolving. She shared that this has happened to her on the past and was related to high ammonia levels due to an infection. Labs in the ED were unremarkable, her ammonia levels were normal, and all CT/MRI imaging was negative for any head/brain abnomalities. Her lithium level was just increased a few weeks ago, however her lithium level was also normal. There is an ECHO pending to rule out any cardiac issues, however it's expected to also be normal. Plan is for her to d/c home later this afternoon w/her spouse continuing to monitor for any further symptoms. Per her RN, pt has been non-symptomatic all day. DCP will continue to follow and monitor for any further evolving needs. Discharge Planning/Care Management CM Discharge Assessment Start: 04/29/23 12:24 Freq: Status: Active Protocol: Document 04/29/23 12:24 DPL (Rec: 04/29/23 12:29 DPL [id number]) Discharge Planning Assessment Assigned Librarian Specialist JUSTIN Slade Advance Directives? No History Provided By Medical Record Expected Length of Stay 1 Has Patient been admitted in last 30 No days? Prior Living Arrangements House Household Members spouse Type of transporation used prior to Drives own vehicle admit Independent with ADL's Yes Is patient alert and oriented? Yes Caregiver for Another No Comment No identified home d/c needs at this time. Barriers to Discharge No Discharge Plan Home Transportation Arrangement Spouse Referrals Initiated None needed Review Status In Process Please Provide Date Initial DC 04/29/23 Assessment Was Performed
--- NOTE | 2023-04-29 12:52 | DI.US.S_ITS ---
PROCEDURE: US CAROTID DOPPLER BI INDICATIONS: TIA TECHNIQUE: Color and pulse Doppler interrogation was performed of both carotid systems, with image documentation and velocity measurements. COMPARISON: None. FINDINGS: Stenosis calculations are based on SRU (Society of Radiologists in Ultrasound) criteria. Right side: Brachial blood pressure: 116/65 mm Hg. Common carotid artery peak systolic velocity: 68 cm/sec. Internal carotid artery peak systolic velocity: 46 cm/sec. Internal carotid artery end diastolic velocity: 19 cm/sec. External carotid artery peak systolic velocity: 84 cm/sec. ICA/CCA peak systolic ratio: 0.7 . Boston scale imaging description: No plaque Percent internal carotid artery stenosis: None. Vertebral artery: Flow direction is antegrade. Left side: Brachial blood pressure: 133/74 mm Hg. Common carotid artery peak systolic velocity: 81 cm/sec. Internal carotid artery peak systolic velocity: 53 cm/sec. Internal carotid artery end diastolic velocity: 14 cm/sec. External carotid artery peak systolic velocity: 55 cm/sec. ICA/CCA peak systolic ratio: 0.7 . Boston scale imaging description: No significant plaque Percent internal carotid artery stenosis: None . Vertebral artery: Flow direction is antegrade. IMPRESSION: The no hemodynamically significant stenosis or significant calcified plaque within the internal carotid arteries. Dictated by: Cliff Ross M.D. on 04/29/2023 at 15:32 Approved by: Cliff Ross M.D. on 04/29/2023 at 15:37
--- NOTE | 2023-04-29 14:00 | ST.IPSLE ---
Visit Care Team Role Provider Type Edward Varela DO Primary Care Provider Non-Staff Specialty: Family Practice Address: [place], [address] Email: Hanane Quiroz MD Emergency Provider Physician Specialty: Emergency Medicine Address: [address] [place] [address], [address] Email: [email or web address] Haylie Martins DO Admit Provider Physician Attending Provider Specialty: Internal Medicine Address: [address] [place] [address], [phone] Fax: Email: Current Diagnoses Essential (primary) hypertension (04/29/23) Aphasia (04/29/23) Past Medical History (Last Updated 04/29/23 @ 04:46 by Haylie Martins DO) HTN (hypertension), benign (Medical) Speech-Language Pathology Speech/Language 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 Jesu Uriarte Reason for Referral aphasia Setting Assessment Location Acute Care Patient Information Patient History Per H&P: States that she woke up this morning and upon awakening she was not able to get her words out, she was talking but none of it made sense and were not the words that she wanted. This lasted about an hour and then started to improve. Her and her started to drive into the hospital however this symptoms or to the point that they were only a few words that she was having difficulty with and thus they decided to go home. Upon getting home symptoms did continue to worsen and they turned around and came back to the hospital. States that she's feeling significantly better now but isn't always able to come up with the exact word that she would like to speak and feels that it takes her a few seconds longer to think of what she wants to say. Notes that a few years ago she had similar symptomatology gamma was found to have an elevated ammonia level secondary to infection and required an extensive course of antibiotics, followed with an infectious disease physician. She does note that she had a recent change about 3 to 4 weeks ago of her lithium dose and could feel that the levels were elevated. She is following with her primary care physician [facility] chronic elevated transaminase which have been present for several years and felt to be secondary to statins. She's currently on a statin holiday to see if her transaminases improved. Has a history of nausea and non bloody emesis, feeling occasionally like food gets stuck in her throat about once every six months. Early satiety with about 10 LB weight loss over the last three weeks. A couple month history of diarrhea sometimes watery and sometimes loose brown. Does not feel that these symptomatology are associated with food. Specifically with the nausea it has been come worse since she had COVID 03/05/23, no she has coughing episodes that result in emesis. Denies odynophagia. She did see a criminal justice instructor in [place] who wanted to place an aspire, she declined at that time period reports that colonoscopy was normal. Neurologically intact in the emergency department. NIH zero . During GAS WORKER interview, pt reported that she has had increasing difficulty over the last few months with being able to finish sentences ( unrelated to the initiating aphasia event that brought her into ED). Occupation Status Former nurse Hearing Hearing Level Normal Previous Therapy Previous Speech-Language Therapy No Subjective Patient Report Pt was seated partially reclined in bed with lunch tray present and her in the room upon ST entry. She was awake, alert, oriented , and agreeable to ST eval. States that her speech/ languiage has resolved from what it was like yesterday. She is aware of situation, stating that the medical team believes she was experiencing a TIA. Mental Status Alert,Responsive,Cooperative Assessment Oral Motor Examination Completed Yes Results Brief OME as part of Quick Aphasia Battery. Oral motor structure and function appear grossly intact for speech/ swallowing. Informal Assessment Receptive Language Normal Yes Expressive Language Normal Yes Pragmatic Language Normal Yes Speech Normal Yes Cognition Normal Yes Formal Assessment Standardized Test/Screener Type Quick Aphasia Battery (QAB) Administration Complete Results Word comprehension 10.00 Sentence comprehension 10.00 Word finding 10.00 Grammatical construction 9.50 Speech motor programming 10.00 Repetition 10.00 Reading 10.00 QAB overall 9.83 According to the authors of the QAB, QAB overall scores between 8.9-10 are interpreted as No Aphasia. Pt did present with mildly decreased phrase length and speech rate, though these may be attributed to fatigue. Findings/Results Language Function Within functional limits Cognitive Function Within functional limits Findings Pt presents with speech and language within functional limits at this time. Phrase length and speech rate are very mildly slowed but functional. Pt appears to be at or very near baseline as TIA has resolved. Recommend outpatient speech therapy for word finding strategies if functional deficits become a concern. Cognitive Communication Deficits Self-awareness of Cognitive- Predictive awareness (able to Communication Deficits predict problem; impact of impairments) Prognosis Prognosis Good Based on Cognitive status,Duration of symptoms/severity Plan of Care Speech-Language Treatment No Patient/Caregiver Education Described results of evaluation,Patient expressed understanding of evaluation, Family/caregivers expressed understanding of evaluation, Family/caregivers expressed agreement with goals and treatment plan Discharge Recommendations Home
[2023-04-29] MEDS: CLOPIDOGREL 75 MG TABLET 300 MG PO (14:30)
--- NOTE | 2023-04-29 16:19 | P.DS_ITS ---
History of Present Illness History of Present Illness Chief complaint: confusion, trouble communicating, not eating. Narrative: States that she woke up this morning and upon awakening she was not able to get her words out, she was talking but none of it made sense and were not the words that she wanted. This lasted about an hour and then started to improve. Her and her started to drive into the hospital however this symptoms or to the point that they were only a few words that she was having difficulty with and thus they decided to go home. Upon getting home symptoms did continue to worsen and they turned around and came back to the hospital. States that she's feeling significantly better now but isn't always able to come up with the exact word that she would like to speak and feels that it takes her a few seconds longer to think of what she wants to say. Notes that a few years ago she had similar symptomatology gamma was found to have an elevated ammonia level secondary to infection and required an extensive course of antibiotics, followed with an infectious disease physician. She does note that she had a recent change about 3 to 4 weeks ago of her lithium dose and could feel that the levels were elevated. She is following with her primary care physician Antonia on the [facility] for chronic elevated transaminase which have been present for several years and felt to be secondary to statins. She's currently on a statin holiday to see if her transaminases improved. Has a history of nausea and non bloody emesis, feeling occasionally like food gets stuck in her throat about once every six months. Early satiety with about 10 LB weight loss over the last three weeks. A couple month history of diarrhea sometimes watery and sometimes loose brown. Does not feel that these symptomatology are associated with food. Specifically with the nausea it has been come worse since she had COVID 03/05/23, no she has coughing episodes that result in Jackelin sis. Denies odynophagia. She did see a security professional in [place] who wanted to place an aspire, she declined at that time period reports that colonoscopy was normal. Neurologically intact in the emergency department. NIH zero. Discharge Providers Provider Date of admission: 04/29/23 01:01 Discharge Date: 04/29/23 Primary care physician: Edward Varela, DO Consults: 04/29/23 02:00 Consult to Occupational Therapy Evaluate & Treat Comment: Physician Instructions: Evaluate and treat Consult to Physical Therapy Evaluate & Treat Comment: Physician Instructions: Evaluate and Treat 04/29/23 11:14 Consult to Speech Therapy Evaluate & Treat Comment: aphasia Physician Instructions: Evaluate and treat Discharge provider: Jesu Uriarte MD Summary Hospital Course Discharge Diagnosis: 1. Probable TIA with transient aphasia, resolved. 2. Hypertension, present on admission and stable. 3. Hyperlipidemia, present on admission and stable. 4. Morbid obesity with BMI of 40.6, present on admission and active. 5. Chronic anxiety, present on admission and stable. 6. Bipolar disorder, present on admission and stable. 7. REBECCA, present on admission and stable. Hospital Course: The patient was admitted with a concern for transient aphasia and TIA. Her initial CT was negative and MRI of the brain was also negative. Her CT angiogram was suboptimal. The patient had no further symptoms but the description from her was consistent with expressive aphasia with word salad and some an unintelligible words. She has no history of TIA or stroke, she does not smoke. She had no other neurologic findings. A carotid duplex ultrasound was also obtained which was unremarkable. She was loaded with Plavix 300 mg p.o. in addition to her aspirin load. She would stopped atorvastatin some time ago. She was willing and able to restart this until follow up with her PCP. Her TIA is rated as high risk due to isolated finding of aphasia, her initial blood pressure being hypertensive, her age, and the duration of her symptoms. She will be discharged with dual antiplatelet therapy for 21-30 days and high dose atorvastatin. Recommend monotherapy therafter and consideration of neurology referral. Status at Discharge Cognitive/behavioral status at discharge: oriented Functional status at discharge: independent ambulation Overall status at discharge: patient is back to baseline Time Spent with Patient Time spent: Greater than 30 minutes Exam Vital Signs (past 8 hours): - 04/29/23 11:41 04/29/23 15:27 Temperature 97.6 F 98.3 F Pulse Rate 60 68 Respiratory Rate 16 16 Blood Pressure 144/88 H 133/76 Pulse Oximetry 96 97 Oxygen Flow Rate 0 0 Oxygen Delivery Method Room Air Oxygen Flow Rate 0 Narrative Exam Narrative: NAD, alert and oriented. Fluent speech. Lungs are clear, normal rate and effort. Heart is regular, no murmur gallop or rub. Abdomen is soft, non distended. Extremities are free of edema. Normal speech No facial droop, cranial nerves grossly intact. Motor strength is 5/5 all extremities, normal gait. Objective ECG Impression: NSR Imaging Multiple studies:: Radiologist's impression: CT brain: Normal CTA head and neck: Suboptimal study but no obvious abnormalities. MRI brain: Normal, no stroke identified. Bilateral carotid duplex ultrasound: Normal. Echo pending, she has had multiple echoes in her past and has always been told these are normal. Very low suspicion for PFO or other structural abnormality. Labs 04/28/23 19:29 04/29/23 06:30 Labs: Laboratory Results - last 24 hr 04/28/23 04/28/23 04/28/23 19:29 22:22 23:15 WBC 6.8 RBC 4.67 Hgb 14.6 Hct 43.2 MCV 92.5 MCH 31.3 MCHC 33.8 RDW 13.7 Plt Count 205 Neut % (Auto) 52.4 Lymph % (Auto) 35.4 [place] % (Auto) 9.5 Eos % (Auto) 1.9 L Baso % (Auto) 0.8 Neut # (Auto) 3600 Lymph # (Auto) 2400 [place] # (Auto) 700 Eos # (Auto) 100 Baso # (Auto) 100 Sodium 140 Potassium 3.7 Chloride 111 H Carbon Dioxide 21 L BUN 6 L Creatinine 0.89 Estimated GFR > 60 BUN/Creatinine Ratio 6.7 Glucose 105 Hemoglobin A1c Calcium 10.1 Total Bilirubin 1.0 AST 137 H ALT 173 H Alkaline Phosphatase 110 Ammonia 25 Total Creatine Kinase 43 Troponin I < 0.012 Total Protein 7.7 Albumin 4.4 Globulin 3.3 Albumin/Globulin Ratio 1.3 Triglycerides Cholesterol LDL Cholesterol, Calc HDL Cholesterol U Opiates 300ng/mL cut Negative Ur Oxycodone Screen Negative Urine Methadone Screen Negative Ur Barbiturates Screen Negative U Tricyclic Antidepress Negative Ur Phencyclidine Scrn Negative Ur Amphetamines Screen Negative U Methamphetamines Scrn Negative Ur MDMA Scrn (Ecstasy) Negative U Benzodiazepines Scrn Negative [place] 1.4 H 1.2 Urine Cocaine Screen Negative U Marijuana (THC) Screen Positive H Urine pH Normal Urine Specific [place] Normal Ur Creatinine Normal 04/29/23 06:30 WBC RBC Hgb Hct MCV MCH MCHC RDW Plt Count Neut % (Auto) Lymph % (Auto) [place] % (Auto) Eos % (Auto) Baso % (Auto) Neut # (Auto) Lymph # (Auto) [place] # (Auto) Eos # (Auto) Baso # (Auto) Sodium 141 Potassium 3.7 Chloride 113 H Carbon Dioxide 24 BUN 7 Creatinine 0.91 Estimated GFR > 60 BUN/Creatinine Ratio 7.7 Glucose 105 Hemoglobin A1c 4.8 Calcium 9.6 Total Bilirubin 0.7 AST 100 H ALT 138 H Alkaline Phosphatase 98 Ammonia Total Creatine Kinase Troponin I Total Protein 6.8 Albumin 3.9 Globulin 2.9 Albumin/Globulin Ratio 1.3 Triglycerides 178 H Cholesterol 222 H LDL Cholesterol, Calc 147 H HDL Cholesterol 39 L U Opiates 300ng/mL cut Ur Oxycodone Screen Urine Methadone Screen Ur Barbiturates Screen U Tricyclic Antidepress Ur Phencyclidine Scrn Ur Amphetamines Screen U Methamphetamines Scrn Ur MDMA Scrn (Ecstasy) U Benzodiazepines Scrn [place] Urine Cocaine Screen U Marijuana (THC) Screen Urine pH Urine Specific [place] Ur Creatinine [facility] Medical History (Updated 04/29/23 @ 04:46 by Haylie Martins DO) HTN (hypertension), benign Social History household members: spouse Smoking Status: Never smoker alcohol intake: current Discharge Assessment & Plan Assessment and Plan Assessment: 1. Probable TIA with transient aphasia, resolved. 2. Hypertension, present on admission and stable. 3. Hyperlipidemia, present on admission and stable. 4. Morbid obesity with BMI of 40.6, present on admission and active. 5. Chronic anxiety, present on admission and stable. 6. Bipolar disorder, present on admission and stable. 7. REBECCA, present on admission and stable. Plan of Treatment: She is discharged with dual antiplatelet therapy, Plavix and aspirin daily for 21 days then consideration of ongoing monotherapy with aspirin. Atorvastatin was restarted. She can continue discussions with this therapy but she was more than willing to restart at this time. Consider outpatient neurology referral. Discharge Plan Discharge Plan Patient Disposition: Home Provider Discharge Comment: Stable for discharge on Aspirin, Plavix, and Atorvastatin. [facility] Discharge orders & Medications Prescriptions: New atorvastatin 20 mg Tablet 80 mg PO BEDTIME Qty: 30 2RF aspirin 81 mg Tablet,Delayed Release (Dr/Ec) 81 mg PO DAILY Qty: 30 3RF clopidogrel [Plavix] 75 mg tablet 75 mg PO DAILY Qty: 30 2RF Continued lamotrigine 200 mg tablet 200 mg PO BID isosorbide mononitrate 30 mg tablet extended release 24 hr 30 mg PO BID lithium carbonate 300 mg tablet extended release 600 mg PO BID hydroxyzine HCl 50 mg tablet 50 mg PO 3XD PRN (Reason: Anxiety) diltiazem HCl 300 mg capsule,extended release 24hr 300 mg PO DAILY valsartan 320 mg tablet 320 mg PO DAILY Follow up/Referrals: Miscellaneous,Doctor, [Non-Staff] - Edward Varela DO [Primary Care Provider] - Diet/Activity/Treatments Diet: Low-cholesterol Visit Report/Discharge Packet Stand Alone Forms: Congestive Heart Failure, Patient Portal/API, Stroke Signs & Symptoms Discharge Data Primary Care Provider: Edward Varela Attending Provider: Haylie Martins Admit Date/Time: 04/29/23 01:01
--- NOTE | 2023-04-29 16:26 | PM.HP.1 ---
History of Present Illness History of Present Illness Date Patient Seen: 04/29/23 Time Patient Seen: 09:30 Chief complaint: confusion, trouble communicating, not eating. Narrative: From Night doctor: States that she woke up this morning and upon awakening she was not able to get her words out, she was talking but none of it made sense and were not the words that she wanted. This lasted about an hour and then started to improve. Her and her started to drive into the hospital however this symptoms or to the point that they were only a few words that she was having difficulty with and thus they decided to go home. Upon getting home symptoms did continue to worsen and they turned around and came back to the hospital. States that she's feeling significantly better now but isn't always able to come up with the exact word that she would like to speak and feels that it takes her a few seconds longer to think of what she wants to say. Notes that a few years ago she had similar symptomatology gamma was found to have an elevated ammonia level secondary to infection and required an extensive course of antibiotics, followed with an infectious disease physician. She does note that she had a recent change about 3 to 4 weeks ago of her lithium dose and could feel that the levels were elevated. She is following with her primary care physician Antonia on the [facility] for chronic elevated transaminase which have been present for several years and felt to be secondary to statins. She's currently on a statin holiday to see if her transaminases improved. Has a history of nausea and non bloody emesis, feeling occasionally like food gets stuck in her throat about once every six months. Early satiety with about 10 LB weight loss over the last three weeks. A couple month history of diarrhea sometimes watery and sometimes loose brown. Does not feel that these symptomatology are associated with food. Specifically with the nausea it has been come worse since she had COVID 03/05/23, no she has coughing episodes that result in Jackelin sis. Denies odynophagia. She did see a bakery helper in [place] who wanted to place an aspire, she declined at that time period reports that colonoscopy was normal. Neurologically intact in the emergency department. NIH zero. [facility] Medical History HTN (hypertension), benign Social History household members: spouse Smoking Status: Never smoker alcohol intake: current Meds Home Medications and Allergies Home Medications Medication Instructions Recorded Confirmed Type diltiazem HCl 300 mg 300 mg PO DAILY 04/28/23 04/28/23 History capsule,extended release 24 hr hydroxyzine HCl 50 mg tablet 50 mg PO 3XD PRN Anxiety 04/28/23 04/28/23 History isosorbide mononitrate 30 mg 30 mg PO BID 04/28/23 04/28/23 History tablet,extended release 24 hr lamotrigine 200 mg tablet 200 mg PO BID 04/28/23 04/28/23 History lithium carbonate 300 mg 600 mg PO BID 04/28/23 04/28/23 History tablet,extended release valsartan 320 mg tablet 320 mg PO DAILY 04/28/23 04/28/23 History aspirin 81 mg tablet,delayed 81 mg PO DAILY #30 tabs 04/29/23 Rx release atorvastatin 20 mg tablet 80 mg (4 x 20 mg) PO BEDTIME #30 04/29/23 Rx tabs clopidogrel 75 mg tablet (Plavix) 75 mg PO DAILY #30 tabs 04/29/23 Rx Allergies Allergy/AdvReac Type Severity Reaction Status Date / Time latex Allergy Rash Verified 04/28/23 18:25 Penicillins Allergy Rash Verified 04/28/23 18:25 Review of Systems Review of Systems Narrative: All else reviewed and otherwise unremarkable except as noted in the history and physical. Exam Vital Signs (past 8 hours): - 04/29/23 11:41 04/29/23 15:27 Temperature 97.6 F 98.3 F Pulse Rate 60 68 Respiratory Rate 16 16 Blood Pressure 144/88 H 133/76 Pulse Oximetry 96 97 Oxygen Flow Rate 0 0 Oxygen Delivery Method Room Air Oxygen Flow Rate 0 Narrative Exam Narrative: NAD, alert and oriented, fluent speech, calm. Normocephalic skull, EOMI, anicteric sclera, symmetric pupils. Oropharynx unremarkable, no droop. Neck supple, midline trachea, no adenopathy. Lungs clear, normal rate and effort. Heart regular, no murmur gallop or rub. Abdomen is soft, non distended and non tender. Extremities are free of edema. Skin is free of rash or lesions. Joints are not swollen or deformed. Judgment appears to be normal. Slightly slow speech but no aphasia. No speech abnormalities. Objective ECG Impression: NSR Imaging multiple studies:: Radiologist's impression: CT brain unremarkable, CTA of head and neck was suboptimal but no obvious abnormalities. Labs 04/28/23 19:29 04/29/23 06:30 Labs: Laboratory Results - last 24 hr 04/28/23 04/28/23 04/28/23 19:29 22:22 23:15 WBC 6.8 RBC 4.67 Hgb 14.6 Hct 43.2 MCV 92.5 MCH 31.3 MCHC 33.8 RDW 13.7 Plt Count 205 Neut % (Auto) 52.4 Lymph % (Auto) 35.4 [place] % (Auto) 9.5 Eos % (Auto) 1.9 L Baso % (Auto) 0.8 Neut # (Auto) 3600 Lymph # (Auto) 2400 [place] # (Auto) 700 Eos # (Auto) 100 Baso # (Auto) 100 Sodium 140 Potassium 3.7 Chloride 111 H Carbon Dioxide 21 L BUN 6 L Creatinine 0.89 Estimated GFR > 60 BUN/Creatinine Ratio 6.7 Glucose 105 Hemoglobin A1c Calcium 10.1 Total Bilirubin 1.0 AST 137 H ALT 173 H Alkaline Phosphatase 110 Ammonia 25 Total Creatine Kinase 43 Troponin I < 0.012 Total Protein 7.7 Albumin 4.4 Globulin 3.3 Albumin/Globulin Ratio 1.3 Triglycerides Cholesterol LDL Cholesterol, Calc HDL Cholesterol U Opiates 300ng/mL cut Negative Ur Oxycodone Screen Negative Urine Methadone Screen Negative Ur Barbiturates Screen Negative U Tricyclic Antidepress Negative Ur Phencyclidine Scrn Negative Ur Amphetamines Screen Negative U Methamphetamines Scrn Negative Ur MDMA Scrn (Ecstasy) Negative U Benzodiazepines Scrn Negative [place] 1.4 H 1.2 Urine Cocaine Screen Negative U Marijuana (THC) Screen Positive H Urine pH Normal Urine Specific [place] Normal Ur Creatinine Normal 04/29/23 06:30 WBC RBC Hgb Hct MCV MCH MCHC RDW Plt Count Neut % (Auto) Lymph % (Auto) [place] % (Auto) Eos % (Auto) Baso % (Auto) Neut # (Auto) Lymph # (Auto) [place] # (Auto) Eos # (Auto) Baso # (Auto) Sodium 141 Potassium 3.7 Chloride 113 H Carbon Dioxide 24 BUN 7 Creatinine 0.91 Estimated GFR > 60 BUN/Creatinine Ratio 7.7 Glucose 105 Hemoglobin A1c 4.8 Calcium 9.6 Total Bilirubin 0.7 AST 100 H ALT 138 H Alkaline Phosphatase 98 Ammonia Total Creatine Kinase Troponin I Total Protein 6.8 Albumin 3.9 Globulin 2.9 Albumin/Globulin Ratio 1.3 Triglycerides 178 H Cholesterol 222 H LDL Cholesterol, Calc 147 H HDL Cholesterol 39 L U Opiates 300ng/mL cut Ur Oxycodone Screen Urine Methadone Screen Ur Barbiturates Screen U Tricyclic Antidepress Ur Phencyclidine Scrn Ur Amphetamines Screen U Methamphetamines Scrn Ur MDMA Scrn (Ecstasy) U Benzodiazepines Scrn [place] Urine Cocaine Screen U Marijuana (THC) Screen Urine pH Urine Specific [place] Ur Creatinine Assessment & Plan Assessment & Plan narrative: 1. TIA (Aphasia), rule out CVA 2. HTN, present on admission and active. 3. HLD, present on admission and active. Chronic conditions: -bipolar disorder, lithium level elevated with repeat 1.2, continue lithium monitoring closely, continue home lamotrigine -REBECCA, cpap QHS -morbid obesity, complicates all aspects of medical care -anxiety, continue home hydroxyzine prn Time Spent With Patient Time with patient: 30 to 49 minutes with 50% spent counseling/coordinating care Quality MIPS - Admit I confirm the patient?s Advance Care Plan is present, Code status is documented, Surrogate decision maker is in patient?s record [If Yes, STOP here]: Yes MIPS - Meds 'Current medications' to include all prescriptions, [id number] products, herbals, cannabis/cannabidiol products, and vitamin/mineral/dietary (nutritional) supplements. I have utilized all available resources to obtain, update, or review the patient?s current medications. [If Yes, STOP here]: Yes MIPS - DC The patient has a history of heart transplant or Left Ventricular Assist Device (LVAD). If yes, STOP here.: No The patient has current or prior documentation of left ventricular ejection fraction (LVEF) less than or equal to 40%, or moderate or severely depressed left ventricular systolic function.: No
== END 2023-04-29 16:42 | disposition home or self-care (01) ==
LOC: ED 18:29 → AC 04-29 01:02
PROVIDERS: Admitting Provider Internal Medicine; Emergency Provider Emergency Medicine; PCP Family Medicine; Visit Provider Internal Medicine
DX: R47.01 Aphasia (principal); R41.0 Disorientation, unspecified; R29.700 NIHSS score 0; I10 Essential (primary) hypertension; E78.5 Hyperlipidemia, unspecified; E66.01 Morbid (severe) obesity due to excess calories; Z68.41 Body mass index [BMI] 40.0-44.9, adult; G47.33 Obstructive sleep apnea (adult) (pediatric); F41.9 Anxiety disorder, unspecified; F31.9 Bipolar disorder, unspecified
CPT/HCPCS: 36415; 70450; 70496; 70498; 70551; 71045; 80053; 80061; 80178; 80305; 81003; 82140; 82550; 83036; 84484; 85025; 92523; 93005; 93010; 93306; 93880; 94660; 96360; 97161; 99284; 99285; G0378; Q9967

== ENCOUNTER → 2024-06-25 13:55 | Outpatient (CLI) | payer MEDICARE, OTHER, SELFPAY ==
[2023-04-29 01:03] VITALS: BMI 40.6
--- NOTE | 2024-06-25 13:59 | DI.ECHO.S_ITS ---
[facility] : : [id number] : : [id number] : : Phone: [phone] Echocardiogram Report + + :Name: ROBERT LEW Study Date: 06/25/2024 Height: 67 in : :[facility] ReadingLocation: Weight: 250 lb : : Gender: Female BSA: 2.2 m2 : :: 1960 Age: 63 yrs BP: 133/81 mmHg: :Reason For Study: SYNCOPE : :Ordering Physician: CAROL ANN, : :LEELEE Vallecillo Performed By: Chauncey Torres : :Referring: LEELEE ROMO : + + Interpretation Summary The ejection fraction is estimated to be 60-65%. Diastolic parameters suggest probable normal left ventricular diastolic function and normal filling pressures. The right ventricle is normal in size and function. Mitral annular calcification with extension to the posterior mitral valve leaflet but no evidence of stenosis. Pulmonary artery pressures cannot be estimated because of the lack of a measurable TR jet velocity but the IVC suggests a CVP of around 3 mmHg. Compared to the prior study 04/29/2023, no major change. Procedure: A two-dimensional transthoracic echocardiogram with color flow and Doppler was performed. The study quality was technically adequate. Comparison is made with the echocardiogram of 04/29/2023. The heart rate ranged between 61-115 bpm during the study. Left Ventricle: The left ventricle is normal in size. There is normal left ventricular wall thickness. There is no ventricular septal defect visualized. The ejection fraction is estimated to be 60-65%. Diastolic parameters suggest probable normal left ventricular diastolic function and normal filling pressures. Right Ventricle: The right ventricle is normal in size and function. Atria: The left atrial size is normal. Right atrial size is normal. There is no Doppler evidence for an interatrial shunt. Mitral Valve: There is mild mitral annular calcification. The mitral valve leaflets are moderately calcified. There is no mitral regurgitation noted. Aortic Valve: The aortic valve is trileaflet. The aortic valve opens well. There is no aortic valve stenosis. No aortic regurgitation is present. Tricuspid Valve: The tricuspid valve is not well visualized, but is grossly normal. No tricuspid regurgitation. Pulmonary artery pressures cannot be estimated because of the lack of a measurable TR jet velocity but the IVC suggests a CVP of around 3 mmHg. Pulmonic Valve: The pulmonic valve is not well visualized. There is no pulmonic valvular regurgitation. Great Vessels: The aortic root is normal size. The dimensions of the ascending aorta are normal. The pulmonary is not well visualized. The IVC is of normal diameter and collapses greater than 50% with a sniff. This suggests a low right atrial pressure of 3 mm Hg. Pericardium/ Pleura There is no pericardial effusion. There is no pleural effusion. MMode/2D Measurements & Calculations LVIDd: 4.0 cm LVOT diam: 1.9 cm LVIDs: 2.7 cm Ao root diam: 3.1 cm FS: 33.6 % asc Aorta Diam: 3.5 cm EPSS: 0.28 cm IVSd: 1.0 cm LVPWd: 1.1 cm LV redmond. diameter/BSA (cm/m^2): 1.8 LV sys. diameter/BSA (cm/m^2): 1.2 LA A2 area: 22.1 cm2 RA long axis: 5.0 cm LA A4 area: 22.2 cm2 RA area: 13.7 cm2 LA length (vol): 5.9 cm RA vol: 31.5 ml LA vol: 70.9 ml RA : 14.2 ml/m2 LA vol index: 31.9 ml/m2 IVC diam: 1.1 cm RVD1 (basal): 3.6 cm RVD2 (mid): 2.8 cm TAPSE: 3.0 cm Doppler Measurements & Calculations Ao V2 max: 193.7 cm/sec LVOT Max Emiliano: 134.6 cm/sec Ao V2 mean: 136.8 cm/sec LV V1 max P.3 mmHg Ao max P.0 mmHg LV V1 VTI: 29.3 cm Ao mean P.1 mmHg AMY(I,D): 2.2 cm2 Ao V2 VTI: 37.0 cm AMY(V,D): 1.9 cm2 sev ratio: 0.79 AMY indexed to BSA (cm^2/m^2): 0.99 MV E max emiliano: 63.2 cm/sec PA V2 max: 145.6 cm/sec MV A max emiliano: 99.4 cm/sec PA V2 mean: 98.2 cm/sec MV E/A: 0.64 PA mean P.3 mmHg Med Peak E' Emiliano: 6.1 cm/sec PA pr(Accel): 25.9 mmHg E/E' med: 10.4 Lat Peak E' Emiliano: 7.4 cm/sec E/E' lat: 8.6 E/e' average: 9.5 MV dec time: 0.19 sec SV(LVOT): 81.3 ml Reading Physician:05:21 PM
== END ==
PROVIDERS: PCP Student in an Organized Health Care Education/Training Program; Referring Provider Internal Medicine Cardiovascular Disease; Visit Provider Internal Medicine Cardiovascular Disease
DX: I34.81 Nonrheumatic mitral (valve) annulus calcification (principal); R55 Syncope and collapse
CPT/HCPCS: 93306